=== PATIENT | female | born 1995 | race Hispanic/Latino ===

== ENCOUNTER 2022-10-21 03:15 | Day surgery (SDC) | payer SELFPAY ==
[2022-10-21 03:48] VITALS: BMI 32.4
[2022-10-21] MEDS ORDERED: hydrALAZINE 20 MG/ML VIAL SLOW IVP PRN (03:53)
== END 2022-10-21 06:19 | disposition home or self-care (01) ==
LOC: CSHLD/OP 03:15
PROVIDERS: ATTEND Obstetrics & Gynecology
DX: O36.8120 Decreased fetal movements, second trimester, not applicable or unspecified (principal); Z3A.25 25 weeks gestation of pregnancy
CPT/HCPCS: 76805

== ENCOUNTER 2022-12-06 14:09 | Emergency (ER) | payer MEDICAID, SELFPAY | END 2022-12-06 16:00 | disposition home or self-care (01) | LOC: CSHERS 14:09 | DX: O99.891 Other specified diseases and conditions complicating pregnancy (principal); H60.93 Unspecified otitis externa, bilateral; Z3A.31 31 weeks gestation of pregnancy | CPT/HCPCS: 99282 ==

== ENCOUNTER 2023-01-28 19:00 | Inpatient (IN) | payer MEDICAID ==
[2023-01-29 03:39] VITALS: BMI 32.2
== END 2023-01-29 07:51 | disposition home or self-care (01) | DRG 833 ==
LOC: CSHLD 01-29 03:16
PROVIDERS: ADMIT Obstetrics & Gynecology; ATTEND Obstetrics & Gynecology
DX: O99.213 Obesity complicating pregnancy, third trimester (principal); Z3A.38 38 weeks gestation of pregnancy
CPT/HCPCS: 76815; 96360; 99283

== ENCOUNTER 2023-01-30 19:30 | Inpatient (IN) | payer MEDICAID ==
[2023-01-31] MEDS ORDERED: Promethazine HCl 25 MG/ML VIAL IM PRN ×3 (02:04→23:43)
[2023-01-31] MEDS ORDERED: hydrALAZINE 20 MG/ML VIAL SLOW IVP PRN (02:04)
[2023-01-31] MEDS ORDERED: Ondansetron PF 4 MG/2 ML Vial IVP PRN ×4 (02:04→23:43)
[2023-01-31] MEDS ORDERED: fentaNYL 50 mcg/mL 1 mL Vial SLOW IVP PRN ×2 (02:06→23:43)
[2023-01-31] MEDS ORDERED: Tranexamic Acid 1,000 MG/10 ML VIAL IVP PRN (02:06)
[2023-01-31] MEDS ORDERED: Misoprostol 200 MCG TAB PR PRN (02:06)
[2023-01-31] MEDS ORDERED: Methylergonovine 0.2 MG/ML VIAL IM PRN (02:06)
[2023-01-31] MEDS ORDERED: Carboprost 250 MCG/ML AMP IM PRN (02:06)
[2023-01-31] MEDS ORDERED: Oxytocin 30 units/NS 500 ML 500 ML IV SCH ×3 (02:15→04:45)
[2023-01-31] MEDS ORDERED: Misoprostol 100 MCG TAB VAG SCH ×2 (03:30→04:45)
[2023-01-31 03:38] LABS: Hematocrit 35.3 % (34.9-44.5); Hemoglobin 11.9 g/dL (12.0-15.5); Mean Corpuscular HGB CONC 33.7 g/dL (32.0-36.0); Mean Corpuscular Hemoglobin 30.7 pg (27.0-33.0); Mean Corpuscular Volume 91.2 fl (81.6-98.3); Mean Platelet Volume 10.8 fl (7.4-10.4); Platelet Count 375 10x3/uL (150-450); RBC Distribution Width 13.2 % (11.5-14.5); Red Blood Cell (RBC) Count 3.87 10x6/uL (3.90-5.03); White Blood Cell (WBC) Count 11.2 10x3/uL (3.5-10.5)
[2023-01-31 04:04] LABS: Syphilis Antibody Nonreactive (Nonreactive); Syphilis Antibody Index 0.04 S/CO (<1.00 Non-Reactive)
[2023-01-31 04:06] LABS: HBSAg Index 0.21 S/CO (0-0.99); Hep B Surf Ag - L&D Non-Reactive S/CO (NonReactive)
[2023-01-31] MEDS ORDERED: Lidocaine 1% (PF) 30 ML VIAL SC PRN (04:35)
[2023-01-31 04:53] VITALS: BMI 32.4
[2023-01-31] MEDS ORDERED: Bupivacaine PF 0.5% 30 ML VIAL ONE (08:00)
[2023-01-31] MEDS ORDERED: ePHEDrine 50 MG/ML VIAL ONE (08:00)
[2023-01-31] MEDS ORDERED: Bupivacaine 0.25% HCL 30 ML VIAL ONE (08:00)
[2023-01-31] MEDS ORDERED: fentaNYL/Ropivacaine Epidural 100 ML ONE (11:30)
[2023-01-31] MEDS: ePHEDrine Sulfate 50 MG/10 ML VIAL SLOW IVP PRN ×3 (12:09→20:26)
[2023-01-31] MEDS ORDERED: Acetaminophen 325 MG TAB PO PRN (12:56)
[2023-01-31] MEDS ORDERED: Moisturizing Cream (Eucerin) 113 GM JAR TOP PRN ×2 (12:56→23:43)
[2023-01-31] MEDS ORDERED: diphenhydrAMINE 50 MG/ML VIAL IVP PRN ×2 (12:56→23:43)
[2023-01-31] MEDS ORDERED: Naloxone HCl 0.4 mg/ml Vial IVP PRN ×4 (12:56→23:43)
[2023-01-31] MEDS ORDERED: Lactated Ringer's 500 ML IV PRN (12:56)
[2023-01-31] MEDS ORDERED: fentaNYL 2 mcg/Ropivacaine 0.2% Epidural 100 ML CADD EPIDURAL SCH (13:00)
[2023-01-31] MEDS ORDERED: Communication Order-Pharmacy FS SCH ×2 (13:00→23:45)
[2023-01-31] MEDS ORDERED: diphenhydrAMINE 25 MG CAP PO SCH (18:30)
[2023-01-31] MEDS: Lactated Ringer's 1,000 ML IV SCH (20:10)
[2023-01-31] MEDS ORDERED: Lactated Ringer's 1,000 ML IV SCH (20:45)
[2023-01-31] MEDS ORDERED: ePHEDrine Sulfate 50 MG/10 ML VIAL SLOW IVP SCH (21:15)
[2023-01-31] MEDS ORDERED: Bicitra 30 ML UDCUP PO PRN (21:53)
[2023-01-31] MEDS ORDERED: Famotidine/PF 20 mg/2ml Vial SLOW IVP PRN (21:53)
[2023-01-31] MEDS ORDERED: CEFAZOLIN 2 GM in Sodium Chloride 0.9% 100 ML IVPB SCH (22:00)
[2023-01-31] MEDS ORDERED: Azithromycin 500 MG in Sodium Chloride 0.9% 250 ML 250 ML IVPB SCH (22:00)
[2023-01-31] MEDS ORDERED: Ondansetron PF 4 MG/2 ML Vial ONE (22:06)
[2023-01-31] MEDS ORDERED: PHENYLEPHRINE-NS 100 MCG/ML 10 ML SYRINGE ONE (22:09)
[2023-01-31] MEDS ORDERED: Ketorolac Tromethamine 30 MG/ML VIAL ONE (22:41)
[2023-01-31] MEDS ORDERED: Morphine PF 10 MG/10 ML VIAL ONE (22:54)
[2023-01-31] MEDS ORDERED: fentaNYL 50 mcg/mL 1 mL Vial ONE (23:08)
[2023-01-31] MEDS ORDERED: Morphine 4 MG/ML VIAL SLOW IVP PRN (23:43)
[2023-01-31] MEDS ORDERED: Naloxone HCl 0.4 mg/ml Vial IV PRN (23:43)
[2023-01-31] MEDS ORDERED: Meperidine HCl/PF 25 MG/ML VIAL SLOW IVP PRN (23:43)
[2023-01-31] MEDS ORDERED: Promethazine HCl 25 MG SUPP PR PRN (23:43)
[2023-01-31] MEDS ORDERED: Ketorolac Tromethamine 30 MG/ML VIAL IVP PRN (23:43)
[2023-01-31] MEDS ORDERED: Ketorolac Tromethamine 30 MG/ML VIAL IVP SCH (23:45)
[2023-02-01] MEDS ORDERED: hydrALAZINE 20 MG/ML VIAL SLOW IVP PRN (06:06)
[2023-02-01] MEDS ORDERED: Boostrix 0.5 ML (Tdap) VIAL (>/=7 yrs of age) IM ONE (06:06)
[2023-02-01] MEDS: Ferrous Sulfate 325 MG TAB PO SCH (07:24)
[2023-02-01] MEDS: Lactated Ringer's 1,000 ML IV SCH ×2 (07:26→07:27)
[2023-02-01 07:48] LABS: Hemoglobin 9.4 g/dL (12.0-15.5); Mean Corpuscular HGB CONC 33.6 g/dL (32.0-36.0); Mean Corpuscular Hemoglobin 30.6 pg (27.0-33.0); Mean Corpuscular Volume 91.2 fl (81.6-98.3); Mean Platelet Volume 10.1 fl (7.4-10.4); Platelet Count 260 10x3/uL (150-450); RBC Distribution Width 13.5 % (11.5-14.5); Red Blood Cell (RBC) Count 3.07 10x6/uL (3.90-5.03); White Blood Cell (WBC) Count 19.4 10x3/uL (3.5-10.5)
[2023-02-01] MEDS: Acetaminophen 500 MG TAB PO SCH ×3 (07:56→21:50)
[2023-02-01] MEDS: Simethicone Chewable 80 MG TAB PO PRN ×2 (07:56→13:28)
[2023-02-01] MEDS: Docusate 100 MG CAP PO SCH ×2 (07:56→21:51)
[2023-02-01] MEDS: HYDROcodone/Acetaminophen 5/325 mg Tablet PO PRN ×3 (11:58→22:07)
[2023-02-01] MEDS: Ibuprofen 800 MG TAB PO SCH ×2 (13:28→21:51)
[2023-02-02] MEDS: Acetaminophen 500 MG TAB PO SCH ×4 (03:05→20:11)
[2023-02-02] MEDS: Ibuprofen 800 MG TAB PO SCH ×3 (05:19→22:05)
[2023-02-02] MEDS: Docusate 100 MG CAP PO SCH (08:14)
[2023-02-02] MEDS: Ferrous Sulfate 325 MG TAB PO SCH (08:14)
[2023-02-02] MEDS: HYDROcodone/Acetaminophen 5/325 mg Tablet PO PRN ×2 (13:31→20:12)
[2023-02-03] MEDS: Acetaminophen 500 MG TAB PO SCH ×2 (00:51→07:58)
[2023-02-03] MEDS: Simethicone Chewable 80 MG TAB PO PRN (00:52)
[2023-02-03] MEDS: HYDROcodone/Acetaminophen 5/325 mg Tablet PO PRN (00:52)
[2023-02-03] MEDS: Ibuprofen 800 MG TAB PO SCH (05:53)
[2023-02-03 07:57] VITALS: BP 106/60; TEMP 98.4
[2023-02-03] MEDS: Ferrous Sulfate 325 MG TAB PO SCH (08:32)
[2023-02-03] MEDS ORDERED: Polyethylene Glycol 3350 17 GM Packet PO SCH (09:00)
== END 2023-02-03 10:30 | disposition home or self-care (01) | DRG 788 ==
LOC: CSHLD 01-31 01:42 → CSHPP 02-01 01:36
PROVIDERS: ADMIT Obstetrics & Gynecology; ATTEND Obstetrics & Gynecology
PROC: 3E0P7VZ Introduction of Hormone into Female Reproductive, Via Natural or Artificial Opening (ICD-10-PCS; 2023-01-31)
PROC: 0U7C7ZZ Dilation of Cervix, Via Natural or Artificial Opening (ICD-10-PCS; 2023-01-31)
PROC: 10H07YZ Insertion of Other Device into Products of Conception, Via Natural or Artificial Opening (ICD-10-PCS; 2023-01-31)
PROC: 10907ZC Drainage of Amniotic Fluid, Therapeutic from Products of Conception, Via Natural or Artificial Opening (ICD-10-PCS; 2023-01-31)
PROC: 10D00Z1 Extraction of Products of Conception, Low, Open Approach (ICD-10-PCS; principal; 2023-02-01)
DX: O99.214 Obesity complicating childbirth (principal); Z3A.39 39 weeks gestation of pregnancy; Z37.0 Single live birth; E66.9 Obesity, unspecified; O36.63X0 Maternal care for excessive fetal growth, third trimester, not applicable or unspecified; O32.8XX0 Maternal care for other malpresentation of fetus, not applicable or unspecified; O76 Abnormality in fetal heart rate and rhythm complicating labor and delivery
CPT/HCPCS: 36415; 51702; 85027; 86780; 86850; 86900; 86901; 87340; J1200; J1885; J2274; J2405; J2590; J3010; J3490; J7120; S0020